=== PATIENT | female | born 1985 | race Caucasian/White ===

== ENCOUNTER 2019-01-06 12:49 | Emergency (ER) | payer OTHER ==
[~2019-01-06] VITALS: Ht 170.2 cm; Wt 104.3 kg
[2019-01-06] MEDS ORDERED: KEFLEX500 M1 PO (13:26)
[2019-01-06] MEDS ORDERED: ACETAMINOPHEN-1 EAC1 PO (13:26)
[2019-01-06] MEDS ORDERED: BACTRIM DS TAB1 EACH PO (13:26)
[2019-01-06 13:45] VITALS: BP 148/93
== END 2019-01-06 13:45 | disposition home or self-care (01) ==
LOC: M.ERS 12:49
DX: L02.31 Cutaneous abscess of buttock (principal); F17.210 Nicotine dependence, cigarettes, uncomplicated; Z98.890 Other specified postprocedural states

== ENCOUNTER 2019-03-29 14:02 | Emergency (ER) | payer OTHER ==
[~2019-03-29] VITALS: Ht 170.2 cm; Wt 134.0 kg
[~2019-03-29 14:02] MED LIST: ACETAMINOPHEN-1 EAC1 PO; BACTRIM DS TAB1 EACH PO; KEFLEX500 M1 PO
[2019-03-29] MEDS ORDERED: MEDROLDOSEPACK PO (15:16)
[2019-03-29] MEDS ORDERED: FLEXERIL PO (15:16)
[2019-03-29] MEDS ORDERED: ACETAMINOPHEN-1 EAC1 PO (15:16)
[2019-03-29 15:39] VITALS: BP 156/99
== END 2019-03-29 15:45 | disposition home or self-care (01) ==
LOC: M.ERS 14:02
DX: M54.12 Radiculopathy, cervical region (principal); M25.512 Pain in left shoulder; Z88.6 Allergy status to analgesic agent; Z98.890 Other specified postprocedural states